=== PATIENT | female | born 1970 | race Caucasian/White ===

== ENCOUNTER 2024-08-31 07:04 | Emergency (ER) | payer OTHER, SELFPAY ==
[2024-08-31 07:05] VITALS: BMI 24.3
[2024-08-31 07:13] VITALS: BP 169/97; PULSE 87; RESP 18; TEMP 36.7; O2SAT 98
--- NOTE | 2024-08-31 07:25 | XR_ITS ---
Examination: Knee, right , 3 views Technique: Knee AP, lateral, oblique 3 views Date and time of exam: August 23, 2024 0753 hours INDICATIONS: Patient fell 4 months ago with injury to the knee, knee pain. FINDINGS: No fracture or dislocation No opaque foreign body IMPRESSION: No fracture or dislocation Suggest follow-up axial view of the patella as clinically warranted
--- NOTE | 2024-08-31 07:25 | XR_ITS ---
Examination: Duplex scan of the lower extremity, unilateral right complete Date and time of exam: August 31, 2024 0731 hours INDICATIONS: Lower leg pain beginning 4 days ago Technique: Duplex scan of the extremity veins using B-mode/grayscale imaging and Doppler spectral analysis and color flow Attention is directed to internal echogenicity, compression and augmentation involving these veins, color flow assessment, spectral analysis Findings: Major deep venous structures in the extremity demonstrate normal course and caliber. There is no evidence of deep vein thrombosis. Normal color flow and spectral analysis Impression: Negative for DVT..
--- NOTE | 2024-08-31 09:00 | PD.EDEXREM ---
ED Extremity Problem RME/HPI General Chief complaint: Extremity Problem,Nontraumatic Stated complaint: RIGHT LOWER LEG SWELLING AND PAIN Time Seen by Provider: 08/31/24 08:07 Arrival date/time: 08/31/24 07:04 54-year-old female with open Workmen's Compensation case presents the emergency department today complaints of right knee pain patient reports he is noticing swelling to the knee and knows that she needs to have her meniscus repaired but reports that she had swelling therefore she came to the ER to rule out DVT Limitations: no limitations Related Data Home Medications ?Medication ?Instructions ?Recorded ?Confirmed bupropion HCl 150 mg tablet,12 hr 150 mg PO QDAY 04/14/18 04/14/18 sustained-release gabapentin 300 mg capsule 300 mg PO TID 04/14/18 04/14/18 lamotrigine 100 mg tablet 100 mg PO QDAY 04/14/18 04/14/18 meloxicam 15 mg tablet 15 mg PO QDAY 04/14/18 04/14/18 metronidazole 500 mg tablet 500 mg PO QID 04/14/18 04/14/18 Previous Rx's ?Medication ?Instructions ?Recorded hydrocodone 5 mg-acetaminophen 300 1 tab PO Q6H PRN pain #8 tabs 04/14/18 mg tablet Allergies Allergy/AdvReac Type Severity Reaction Status Date / Time No Known Allergies Allergy Verified 04/14/18 06:49 Review of Systems Review of Systems Systems Reviewed: All systems reviewed, normal except as documented Constitutional Constitutional: Reports system reviewed and no additional complaints, except as documented, Denies fever(s) and Denies headache(s) Eyes Eyes: Reports system reviewed and no additional complaints, except as documented and Denies blurry vision ENT Ears, Nose, Mouth, and Throat: Reports system reviewed and no additional complaints, except as documented, Denies headache(s), Denies nasal congestion and Denies nasal discharge Cardiovascular Cardiovascular: Reports system reviewed and no additional complaints, except as documented, Denies chest pain and Denies dyspnea Respiratory Respiratory: Reports system reviewed and no additional complaints, except as documented, Denies chest congestion, Denies cough and Denies dyspnea Gastrointestinal Gastrointestinal: Reports system reviewed and no additional complaints, except as documented and Denies abdominal pain Musculoskeletal Musculoskeletal: Reports system reviewed and no additional complaints, except as documented, Denies abnormal gait, Reports arthralgias and Denies tingling Integumentary/Breasts Skin/Breast: Reports system reviewed and no additional complaints, except as documented and Denies rash Neurologic Neurologic: Reports system reviewed and no additional complaints, except as documented, Reports as per HPI, Denies abnormal gait, Denies headache(s) and Denies tingling Past Medical History Past Medical History NEUROLOGIC: Negative Neurological Disorders CARDIAC: Positive Deep Vein Thrombosis; Negative Cardiac Disorders or Congestive Heart Failure RESPIRATORY: Negative Chronic Obstructive Pulmonary Disease (COPD) GENITOURINARY: Negative Renal Disease ENDOCRINE: Negative Diabetes Mellitus Type 1 or Diabetes Mellitus Type 2 Social History SMOKING STATUS: Never smoker ED Exam General Limitations: Present no limitations General appearance: Present alert and in no apparent distress Head Head exam: Present atraumatic Eye Eye exam: Present normal appearance, PERRL and EOMI ENT ENT exam: Present normal exam, normal oropharynx and mucous membranes moist Neck Neck exam: Present normal inspection, full ROM and trachea midline Chest Chest inspection: Present normal inspection and symmetric chest wall rise Respiratory Respiratory exam: Present normal lung sounds bilaterally Cardiovascular Cardiovascular exam: Present regular rate, normal rhythm and normal heart sounds Abdominal Exam Abdominal exam: Present soft and normal bowel sounds Extremities Exam Extremities exam: Present full ROM, tenderness, normal capillary refill, joint swelling and calf tenderness; Absent pedal edema Back Exam Back exam: Present normal inspection and full ROM; Absent vertebral tenderness Neurological Exam Neurological exam: Present alert, oriented X3 and CN II-XII intact Psychiatric Psychiatric exam: Present normal affect and normal mood Skin Skin exam: Present warm, dry, intact and normal color Course Quality Measures none Orders Category Date Time Status US venous doppler LE RT Stat Exams 08/31/24 07:25 Completed XR knee RT 3V Stat Exams 08/31/24 07:25 Completed Vital Signs Vital signs: Vital Signs Temperature 98.1 F 08/31/24 07:13 Pulse Rate 87 08/31/24 07:13 Respiratory Rate 18 08/31/24 07:13 Blood Pressure 169/97 H 08/31/24 07:13 Pulse Oximetry (%) 98 08/31/24 07:13 Oxygen Delivery Method Room Air 08/31/24 07:13 o2 sat 98% r/a wnl Extremity Problem MDM Narrative MDM Narrative:: 54-year-old female with open Workmen's Compensation case presents the emergency department today complaints of right knee pain patient reports he is noticing swelling to the knee and knows that she needs to have her meniscus repaired but reports that she had swelling therefore she came to the ER to rule out DVT On exam patient has mild swelling and tenderness of the right knee and right leg X-ray of the right knee and ultrasound of the right leg obtained no acute DVT noted Patient is no erythema or redness no evidence of infection Patient instructed to follow-up Workmen's Compensation doctor for emergent concerns to return immediately Patient data External records reviewed:: [facility] previous records Clinical information provided by:: patient Social determinants that could affect healthcare access:: none Patient has the following chronic illnesses:: none How is presenting disease/condition affected by chronic disease/condition?: no chronic disease Evaluation data The following diagnostics were reviewed and interpreted by me:: radiology exam(s) Lab and/or radiology exams considered but not ordered:: rad obtained Interpretation Summary: reviewed by me Medications / Prescriptions Medications or Prescriptions considered but not ordered:: given Medication administrations:: given Consultations Consultation(s) initiated? (list below): No Diagnosis Most likely diagnosis given after review of the tests above:: knee sprain , dvt , chronic knee pain Admission Indicated Admission indicated?: not indicated Admission Request Was there a request for admission?: No Disposition Plan Disposition Plan: Discharge Discharge Attestation Discharge Attestation: The patient and all family members were given an opportunity to ask questions and understood the discharge instructions. Discharge instructions specifically effects, indications for sooner follow up or return to the emergency department, and the expected course of current diagnosis. Patient condition: Stable Discharge Plan Plan Patient Disposition: HOME (Self Care) Disposition Comment: stable Prescriptions/Referrals Prescriptions/Med Rec: No Action bupropion HCl 150 mg Tablet Extended Release 12 Hr 150 mg PO QDAY meloxicam 15 mg Tablet 15 mg PO QDAY metronidazole 500 mg Tablet 500 mg PO QID gabapentin 300 mg Capsule 300 mg PO TID lamotrigine 100 mg Tablet 100 mg PO QDAY hydrocodone-acetaminophen 5-300 mg tablet 1 tab PO Q6H MDD 4 PRN (Reason: pain) Qty: 8 0RF Referrals: Serge Degroot MD [Primary Care Provider] - In 1 week Problem List Clinical Impression: Knee pain, right Patient/Caregiver Discharge Instructions Education Materials: ED MIKAELA Wrap Additional Instructions: please follow up wiht your work comp provider for worsening symptoms return immediately Print Language: Frisian Stand Alone Forms: Sarah Award Info., Patient Portal Info Letter MARIALUISA/SLEEP TECH Supervising Physician PA/SLEEP TECH Supervising Physician: dr dickey
== END 2024-08-31 08:41 | disposition home or self-care (01) ==
PROVIDERS: Emergency Provider Emergency Medicine; PCP Family Medicine
DX: M25.561 Pain in right knee (principal); M79.89 Other specified soft tissue disorders
CPT/HCPCS: 73562; 93971; 99284